=== PATIENT | male | born 1965 ===

== ENCOUNTER 2022-01-24 06:35 | Day surgery (SDC) | payer OTHER ==
[~2022-01-24] VITALS: Ht 170.2 cm; Wt 71.2 kg
[~2022-01-24 06:35] MED LIST: OMEPRAZOLE-BIC1 EAC1 PO; TAMS0.4C PO
[2022-01-24] MEDS ORDERED: ENDOCET 5-3251 EACH PO (12:06)
== END 2022-01-24 16:15 | disposition home or self-care (01) ==
LOC: CIR.AMB 06:35
PROVIDERS: ATTEND Surgery
DX: N52.9 Male erectile dysfunction, unspecified (principal); N48.6 Induration penis plastica; Z86.16 Personal history of COVID-19
CPT/HCPCS: 54405; C1813